=== PATIENT | female | born 1975 | race Caucasian/White ===

== ENCOUNTER 2017-06-15 16:10 | Emergency (ER) | payer MEDICARE, OTHER ==
[~2017-06-15] VITALS: Ht 177.8 cm; Wt 88.0 kg
[~2017-06-15 16:10] MED LIST: ALPR0.25 PO; AMOX1TAB61 PO; BENZONATATE; HYDR-971 PO; IPRA4AER IH; IPRATROPIUM/; LEVO500T59 PO; LEVO500T8; METO25TA4 PO; NAPR500T PO; NICO1PAT2 TP; PRED-220 PO; PREDNISONE; PROAIR HFA8.5 GM IH; SULF-143; VENTOLIN HFA18 GM; [UNRECOGNIZED DRUG - SUPPLY]; pred PO
[2017-06-15 16:16] VITALS: BP 122/65
--- NOTE | 2017-06-15 16:24 | PHYS DOC ---
Past Medical History Past Medical History: COPD, Hyperthyroid Additional Past Medical Histor: ovarian cyst Past Surgical History: Tonsillectomy, Tubal ligation Additional Past Surgical Histo: Tubal Alcohol Use: None Drug Use: None Adult General Chief Complaint Chief Complaint: TOE PROBLEM HPI HPI Patient is a 41 year old female presents to the emergency department with a history of right great toe pain after dropping a refrigerator on the the toe today about 2 pm. Patient states the pain is throbbing sharp pain 9.5/10 she has taken Tylenol for the pain with minimal relief. Denies increase pain with ambulation. Review of Systems Review of Systems Constitutional: Denies fever or chills [] Eyes: Denies change in visual acuity, redness, or eye pain [] HENT: Denies nasal congestion or sore throat [] Respiratory: Denies cough or shortness of breath [] Cardiovascular: No additional information not addressed in HPI [] GI: Denies abdominal pain, nausea, vomiting, bloody stools or diarrhea [] : Denies dysuria or hematuria [] Musculoskeletal: Denies back pain. Toe pain, right great toe Integument: Denies rash or skin lesions [] Neurologic: Denies headache, focal weakness or sensory changes [] Endocrine: Denies polyuria or polydipsia [] Current Medications Current Medications Current Medications Medications (Trade) Dose Ordered Sig/Kee Start Time Stop Time Status Last Admin Dose Admin Ibuprofen (Motrin) 800 mg 1X ONCE 06/15/17 16:45 06/15/17 16:46 DC 06/15/17 16:48 800 MG Allergies Allergies Allergies Coded Allergies Type Severity Reaction Last Updated Verified No Known Drug Allergies 12/05/15 No Physical Exam Physical Exam Constitutional: Well developed, well nourished, no acute distress, non-toxic appearance. [] HENT: Normocephalic, atraumatic, bilateral external ears normal, oropharynx moist, no oral exudates, nose normal. [] Eyes: PERRLA, EOMI, conjunctiva normal, no discharge. [] Neck: Normal range of motion, no tenderness, supple, no stridor. [] Cardiovascular:Heart rate regular rhythm, no murmur [] Lungs & Thorax: Bilateral breath sounds clear to auscultation [] Skin: Warm, dry, no erythema, no rash. [] Back: No tenderness Extremities: Right toe tenderness, no cyanosis, no clubbing, ROM intact, no edema. Patient with swelling and ecchymosis noted to the toe Neurologic: Alert and oriented X 3, normal motor function, normal sensory function, no focal deficits noted. [] Psychologic: Affect normal, judgement normal, mood normal. [] Current Patient Data Vital Signs Vital Signs Date Time Temp Pulse Resp B/P (MAP) Pulse Ox O2 Delivery O2 Flow Rate FiO2 06/15/17 16:16 97.5 60 18 99 Room Air 97.5 EKG EKG [] Radiology/Procedures Radiology/Procedures [] Course & Med Decision Making Course & Med Decision Making Pertinent Labs and Imaging studies reviewed. (See chart for details) X-rays negative of bony abnormalities, or acute fractures per Dr Ariza and Dr Munoz. Recommended Tylenol or Ibuprofen for pain and discomfort. Ice packs on 20 minutes and off 20 minutes several times a day. Elevation as much as possible , Followup with orthopedic in 1 week. Signs and symptoms to return to emergency department has been provided. Patient agrees with discharge instructions, treatment regimen and followup recommendations. All questions and concerns have been answered at patients bedside. [] Dragon Disclaimer Dragon Disclaimer This electronic medical record was generated, in whole or in part, using a voice recognition dictation system. Departure Departure Disposition: 01 HOME, SELF-CARE Condition: STABLE Referrals: JAMESON BUENO (PCP) GEMA ROSADO MD Patient Instructions: Crush Injury, Fingers or Toes, [id number] Additional Instructions: Activity as tolerated Tylenol or Ibuprofen for pain and discomfort Ice packs on 20 minutes and off 20 minutes several times a day Elevation as much as possible Followup with orthopedic in 1 week Return to emergency department as needed for signs and symptoms that become worse. GRISELDA IVORY SCAFFOLD ERECTOR Jun 15, 2017 16:24
[2017-06-15] MEDS ORDERED: IBUPROFEN 800 MG TABLET. PO ONE (16:45)
--- NOTE | 2017-06-16 08:54 | RAD ---
Right great toe, 3 views, 06/15/2017: History: Injury, toe fracture There is a small calcific density along the medial margin of the first metatarsal head. The appearance suggests a small cortical avulsion fracture, most likely old. No definite acute fracture or dislocation is identified. There is mild soft tissue swelling. IMPRESSION: Small cortical avulsion fracture arising from the first metatarsal head, most likely old.
== END 2017-06-15 17:12 | disposition home or self-care (01) ==
LOC: ER 16:10
DX: S90.111A Contusion of right great toe without damage to nail, initial encounter (principal); J44.9 Chronic obstructive pulmonary disease, unspecified; E05.90 Thyrotoxicosis, unspecified without thyrotoxic crisis or storm; W20.8XXA Other cause of strike by thrown, projected or falling object, initial encounter; Y93.89 Activity, other specified; Y92.89 Other specified places as the place of occurrence of the external cause; Y99.8 Other external cause status
CPT/HCPCS: 73660; 99284

== ENCOUNTER 2017-07-04 00:04 | Emergency (ER) | payer MEDICARE, OTHER ==
[~2017-07-04] VITALS: Ht 175.3 cm; Wt 88.9 kg
[~2017-07-04 00:04] MED LIST changes: +NAPR-683 PO; -NAPR500T PO
--- NOTE | 2017-07-04 00:28 | PHYS DOC ---
Past Medical History Past Medical History: COPD, Depression, Hyperthyroid Additional Past Medical Histor: ovarian cyst Past Surgical History: Tonsillectomy, Tubal ligation Additional Past Surgical Histo: THYROIDECTOMY Alcohol Use: None Drug Use: None Adult General Chief Complaint Chief Complaint: FOOT INJURY PAIN HPI HPI Patient is a 41 year old female presents the ED complaining of right foot injury times one day. Patient states she was walking out of the gas station and twisted her foot. Describes as sharp. Rates as 7/10. Denies head/neck injury, LOC, vision changes, nausea/vomiting, chest pain, shortness of breath, dizziness , weakness or abdominal pain. Review of Systems Review of Systems Constitutional: Denies fever or chills [] Eyes: Denies change in visual acuity, redness, or eye pain [] HENT: Denies nasal congestion or sore throat [] Respiratory: Denies cough or shortness of breath [] Cardiovascular: No additional information not addressed in HPI [] GI: Denies abdominal pain, nausea, vomiting, bloody stools or diarrhea [] : Denies dysuria or hematuria [] Musculoskeletal: Denies back pain. Complains of right foot pain. [] Integument: Denies rash or skin lesions [] Neurologic: Denies headache, focal weakness or sensory changes [] Endocrine: Denies polyuria or polydipsia [] Current Medications Current Medications Current Medications Medications (Trade) Dose Ordered Sig/Kee Start Time Stop Time Status Last Admin Dose Admin Acetaminophen/ Hydrocodone Bitart (Lortab 5/325) 1 tab 1X ONCE 07/04/17 00:45 07/04/17 00:46 DC 07/04/17 00:49 1 TAB Allergies Allergies Allergies Coded Allergies Type Severity Reaction Last Updated Verified No Known Drug Allergies 12/05/15 No Physical Exam Physical Exam Constitutional: Well developed, well nourished, no acute distress, non-toxic appearance. [] HENT: Normocephalic, atraumatic, bilateral external ears normal, oropharynx moist, no oral exudates, nose normal. [] Eyes: PERRLA, EOMI, conjunctiva normal, no discharge. [] Neck: Normal range of motion, no tenderness, supple, no stridor. [] Cardiovascular:Heart rate regular rhythm, no murmur [] Lungs & Thorax: Bilateral breath sounds clear to auscultation [] Abdomen: Bowel sounds normal, soft, no tenderness, no masses, no pulsatile masses. [] Skin: Warm, dry, no erythema, no rash. [] Back: No tenderness, no CVA tenderness. [] Extremities: MILD DISTAL RIGHT FOOT TENDERNESS. no cyanosis, no clubbing, ROM intact, no edema. [] Neurologic: Alert and oriented X 3, normal motor function, normal sensory function, no focal deficits noted. [] Psychologic: Affect normal, judgement normal, mood normal. [] Current Patient Data Vital Signs Vital Signs Date Time Temp Pulse Resp B/P (MAP) Pulse Ox O2 Delivery O2 Flow Rate FiO2 07/04/17 00:37 97.5 64 18 97 Room Air 97.5 EKG EKG [] Radiology/Procedures Radiology/Procedures PROCEDURE: FOOT RIGHT 3V EXAM: Right foot 3 views. HISTORY: Right foot pain and swelling after a fall. COMPARISON: None. FINDINGS: There is a mildly dorsally displaced fracture of the 4th proximal phalanx. There is a soft tissue calcification medial to the 1st metatarsal head. 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 There is ossification at the insertion of the Achilles tendon. IMPRESSION: 1. Mildly displaced fracture of the 4th proximal phalanx. Course & Med Decision Making Course & Med Decision Making Pertinent Labs and Imaging studies reviewed. (See chart for details) []Discussed imaging with patient. Patient's pain improved. Splint refused. BURKE wrap placed and ortho hard soled shoe. NV intact post placement. Crutches given , patient able to ambulate without complication. Instructed to remain non- weightbearing until seen by ortho. Vitals stable, no acute distress. Discussed follow-up with orthopedics this week. Discussed reasons to return to the ED. Patient understands and agrees with plan. Dragon Disclaimer Dragon Disclaimer This electronic medical record was generated, in whole or in part, using a voice recognition dictation system. Departure Departure Impression: Primary Impression: Foot sprain Disposition: HOME, SELF-CARE Condition: STABLE Referrals: JAMESON BUENO (PCP) ALEXANDRIA SALDIVAR MD Patient Instructions: Foot Fracture RAMEZ GALICIA Jul 04, 2017 00:28
[2017-07-04 00:37] VITALS: BP 105/62
[2017-07-04] MEDS ORDERED: HYDROcodone/APAP 5/325MG 1 TAB TABLET PO ONE (00:45)
--- NOTE | 2017-07-04 08:35 | RAD ---
EXAM: Right foot 3 views. HISTORY: Right foot pain and swelling after a fall. COMPARISON: None. FINDINGS: There is a mildly dorsally displaced fracture of the 4th proximal phalanx. There is a soft tissue calcification medial to the 1st metatarsal head. 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 There is ossification at the insertion of the Achilles tendon. IMPRESSION: 1. Mildly displaced fracture of the 4th proximal phalanx.
[2017-07-05] MEDS ORDERED: HYDR-971 PO (16:00)
== END 2017-07-04 01:20 | disposition home or self-care (01) ==
LOC: ER 00:04
DX: S93.602A Unspecified sprain of left foot, initial encounter (principal); J44.9 Chronic obstructive pulmonary disease, unspecified; E05.90 Thyrotoxicosis, unspecified without thyrotoxic crisis or storm; Z98.51 Tubal ligation status; E89.0 Postprocedural hypothyroidism; X50.9XXA Other and unspecified overexertion or strenuous movements or postures, initial encounter; Y93.89 Activity, other specified; Y99.8 Other external cause status; Y92.89 Other specified places as the place of occurrence of the external cause
CPT/HCPCS: 73630; 99284

== ENCOUNTER 2017-07-05 13:24 | Emergency (ER) | payer MEDICARE, OTHER ==
[~2017-07-05] VITALS: Ht 175.3 cm; Wt 88.5 kg
[~2017-07-05 13:24] MED LIST changes: -NAPR-683 PO; +NAPR500T PO
[2017-07-05 13:35] VITALS: BP 118/68
--- NOTE | 2017-07-05 13:52 | PHYS DOC ---
Past Medical History Past Medical History: COPD, Depression, Hyperthyroid Additional Past Medical Histor: ovarian cyst Past Surgical History: Tonsillectomy, Tubal ligation Additional Past Surgical Histo: THYROIDECTOMY Alcohol Use: None Drug Use: None Adult General Chief Complaint Chief Complaint: FOOT INJURY PAIN [facility] HPI Patient is a 41 year old female presents to the ED complaining of right foot re -injury since this morning. Patient seen in ED on Tuesday night for fall outside of gas station. Patient states she was crutching around her house and hit her foot on the corner of the counter. States she has not been wearing her ortho shoe as instructed. States pain is 9 out of 10. Describes pain as sharp. Denies chest pain, shortness of breath, dizziness, weakness, leg pain/swelling, syncope. Review of Systems Review of Systems Constitutional: Denies fever or chills [] Eyes: Denies change in visual acuity, redness, or eye pain [] HENT: Denies nasal congestion or sore throat [] Respiratory: Denies cough or shortness of breath [] Cardiovascular: No additional information not addressed in HPI [] GI: Denies abdominal pain, nausea, vomiting, bloody stools or diarrhea [] : Denies dysuria or hematuria [] Musculoskeletal: Denies back pain. Complains of right foot pain [] Integument: Denies rash or skin lesions [] Neurologic: Denies headache, focal weakness or sensory changes [] Endocrine: Denies polyuria or polydipsia [] Current Medications Current Medications Current Medications Medications (Trade) Dose Ordered Sig/Kee Start Time Stop Time Status Last Admin Dose Admin Acetaminophen/ Hydrocodone Bitart (Lortab 5/325) 1 tab 1X ONCE 07/05/17 14:15 07/05/17 14:16 DC 07/05/17 14:30 1 TAB Allergies Allergies Allergies Coded Allergies Type Severity Reaction Last Updated Verified No Known Drug Allergies 12/05/15 No Physical Exam Physical Exam Constitutional: Well developed, well nourished, no acute distress, non-toxic appearance. [] HENT: Normocephalic, atraumatic, bilateral external ears normal, oropharynx moist, no oral exudates, nose normal. [] Eyes: PERRLA, EOMI, conjunctiva normal, no discharge. [] Neck: Normal range of motion, no tenderness, supple, no stridor. [] Cardiovascular:Heart rate regular rhythm, no murmur [] Lungs & Thorax: Bilateral breath sounds clear to auscultation [] Abdomen: Bowel sounds normal, soft, no tenderness, no masses, no pulsatile masses. [] Skin: Warm, dry, no erythema, no rash. [] Back: No tenderness, no CVA tenderness. [] Extremities: MILD RIGHT DISTAL FOOT 4TH AND 5TH DIGIT TENDERNESS/SWELLING, no cyanosis, no clubbing, ROM intact, no edema. [] Neurologic: Alert and oriented X 3, normal motor function, normal sensory function, no focal deficits noted. [] Psychologic: Affect normal, judgement normal, mood normal. [] Current Patient Data Vital Signs Vital Signs Date Time Temp Pulse Resp B/P (MAP) Pulse Ox O2 Delivery O2 Flow Rate FiO2 07/05/17 14:30 18 97 Room Air 07/05/17 13:35 97.7 55 97.7 EKG EKG [] Radiology/Procedures Radiology/Procedures PROCEDURE: FOOT RIGHT 3V EXAM: Right foot, 3 views. HISTORY: Fall. COMPARISON: None. FINDINGS: Frontal, lateral and oblique views of the right foot are obtained. There are minimally displaced fractures of the proximal aspects of the fourth and likely fifth proximal phalanges. There is slight subluxation of the fifth distal phalanx. There is surrounding soft tissue swelling. IMPRESSION: 1. Mildly displaced fracture of the fourth proximal phalanx and possibly the fifth proximal phalanx. 2. Slight subluxation of the fifth distal phalanx. PROCEDURE: TOES RIGHT EXAM: Right fifth toe, 3 views. HISTORY: Closed reduction. COMPARISON: 07/05/2017. FINDINGS: Frontal, lateral and oblique views of the fifth toe are obtained. There is slight deformity of the base of the fifth proximal phalanx which is only seen on a single projection and is likely projectional rather than due to a nondisplaced fracture. There is improved alignment of the fifth distal phalanx relative to the proximal phalanx. There is a minimally displaced fracture of the fourth proximal phalanx. There is soft tissue swelling. IMPRESSION: 1. Improved alignment of the fifth distal phalanx relative to the proximal phalanx. 2. Minimally displaced fracture of the fourth proximal phalanx. Course & Med Decision Making Course & Med Decision Making Pertinent Labs and Imaging studies reviewed. (See chart for details) [] XR shows fracture seen on previous XR as well as possible 5th toe FX and partial subluxation. Patient states she was not wearing her ortho shoe at the time of second accident. Reduction performed and post reduction XR ordered. No Complications. Patients pain improved. Vital stable, no acute distress. Splint placed. NV intact post placement. Discussed remaining nonweightbearing until follow-up with orthopedics this week. Provided contact information/education. Discussed reasons to return to the ED. Patient understands and agrees with plan. Dragon Disclaimer Dragon Disclaimer This electronic medical record was generated, in whole or in part, using a voice recognition dictation system. Departure Departure Impression: Primary Impression: Toe fracture, right Additional Impression: Subluxation of right toe Disposition: HOME, SELF-CARE Condition: STABLE Referrals: UNKNOWN PCP NAME (PCP) JULIEN CHARLES MD Patient Instructions: Toe Fracture Scripts Hydrocodone/Apap 5-325 (NORCO 5-325 TABLET) 1 Each Tablet 1 TAB PO TID, #8 TAB Prov: RAMEZ GALICIA 07/05/17 Problem Qualifiers RAMEZ GALICIA Jul 05, 2017 13:52
--- NOTE | 2017-07-05 14:13 | RAD ---
EXAM: Right foot, 3 views. HISTORY: Fall. COMPARISON: None. FINDINGS: Frontal, lateral and oblique views of the right foot are obtained. There are minimally displaced fractures of the proximal aspects of the fourth and likely fifth proximal phalanges. There is slight subluxation of the fifth distal phalanx. There is surrounding soft tissue swelling. IMPRESSION: 1. Mildly displaced fracture of the fourth proximal phalanx and possibly the fifth proximal phalanx. 2. Slight subluxation of the fifth distal phalanx.
[2017-07-05] MEDS ORDERED: HYDROcodone/APAP 5/325MG 1 TAB TABLET PO ONE (14:15)
--- NOTE | 2017-07-05 15:26 | RAD ---
EXAM: Right fifth toe, 3 views. HISTORY: Closed reduction. COMPARISON: 07/05/2017. FINDINGS: Frontal, lateral and oblique views of the fifth toe are obtained. There is slight deformity of the base of the fifth proximal phalanx which is only seen on a single projection and is likely projectional rather than due to a nondisplaced fracture. There is improved alignment of the fifth distal phalanx relative to the proximal phalanx. There is a minimally displaced fracture of the fourth proximal phalanx. There is soft tissue swelling. IMPRESSION: 1. Improved alignment of the fifth distal phalanx relative to the proximal phalanx. 2. Minimally displaced fracture of the fourth proximal phalanx.
[2017-07-05] MEDS ORDERED: HYDR-971 PO (16:00)
== END 2017-07-05 16:02 | disposition home or self-care (01) ==
LOC: ER 13:24
DX: S92.911A Unspecified fracture of right toe(s), initial encounter for closed fracture (principal); S93.101A Unspecified subluxation of right toe(s), initial encounter; E05.90 Thyrotoxicosis, unspecified without thyrotoxic crisis or storm; J44.9 Chronic obstructive pulmonary disease, unspecified; Z98.51 Tubal ligation status; W18.30XA Fall on same level, unspecified, initial encounter; Y93.89 Activity, other specified; Y99.8 Other external cause status; Y92.89 Other specified places as the place of occurrence of the external cause
CPT/HCPCS: 73630; 73660; 99284-25

== ENCOUNTER 2017-11-02 22:27 | Emergency (ER) | payer OTHER, MEDICARE ==
[2017-11-02 22:50] LABS: URINE HCG POC HCG NEGATIVE (Negative)
[2017-11-02] MEDS: ALBUTEROL SULFATE 2.5 MG/3 ML NEBU. CONT NEB (22:56)
[2017-11-02] MEDS: oxyCODONE/APAP 10/325 1 TAB TABLET PO (23:10)
[2017-11-02] MEDS: predniSONE 20 MG TABLET PO (23:10)
== END 2017-11-03 00:01 | disposition home or self-care (01) ==
LOC: ER 11-03 00:01
DX: J44.1 Chronic obstructive pulmonary disease with (acute) exacerbation (principal); E05.90 Thyrotoxicosis, unspecified without thyrotoxic crisis or storm; Z90.89 Acquired absence of other organs
CPT/HCPCS: 71045; 81025; 94644; 99285; J7512; J7613

== ENCOUNTER 2017-12-14 13:38 | Emergency (ER) | payer OTHER ==
[2017-12-14] MEDS ORDERED: KETOROLAC 60 MG/2 ML INJ. IM (14:15)
== END 2017-12-14 15:10 | disposition home or self-care (01) ==
LOC: ER 13:38
DX: S80.11XA Contusion of right lower leg, initial encounter (principal); J44.9 Chronic obstructive pulmonary disease, unspecified; Z98.51 Tubal ligation status; W18.39XA Other fall on same level, initial encounter; Y93.89 Activity, other specified; Y99.8 Other external cause status; Y92.89 Other specified places as the place of occurrence of the external cause
CPT/HCPCS: 73590; 73630; 96372; 99284-25